=== PATIENT | female | born 1955 | race Caucasian/White ===

== ENCOUNTER 2020-10-02 16:50 | Inpatient (IN) | payer MEDICARE ==
[2020-10-02 17:21] LABS: #Lymphocytes 1.2 thou/uL (1.20-3.40); #Monocytes 0.4 thou/uL (0.11-0.59); #Neutrophils 4.4 thou/uL (1.40-6.50); %Basophils 0.4 % (0.0-1.0); %Eosinophils 0.7 % (0.0-10.0); %Lymphocytes 19.4 % (21.0-51.0); %Monocytes 7.2 % (0.0-10.0); %Neutrophils 72.3 % (42.0-75.0); Hemoglobin 12.5 g/dL (12.0-16.0); Mean Corpuscular Hemoglobin 31.8 pg (27.0-31.0); Mean Corpuscular Volume 93.6 fL (78.0-98.0); Mean Platelet Volume 5.9 fL (7.4-10.4); Platelet Count 151 thou/uL (130-400); RBC Distribution Width 12.4 % (11.5-14.5); Red Blood Cell (RBC) Count 3.92 mill/uL (4.20-5.40)
[2020-10-02] MEDS ORDERED: Fentanyl 100 MCG/2 ML VIAL ONE (17:27)
[2020-10-02 17:45] LABS: Anion Gap 11 mmol/L (10-20); BUN (Urea Nitrogen) 14 mg/dL (9.8-20.1); Calc. Creatinine Clearance 0 mL/min (70-130); Calcium 8.4 mg/dL (7.8-10.44); Carbon Dioxide 26 mmol/L (23-31); Chloride 106 mmol/L (98-107); Glucose 96 mg/dL (80-115); Potassium 3.3 mmol/L (3.5-5.1); Sodium 140 mmol/L (136-145)
[2020-10-02 17:46] LABS: ALT (SGPT) 14 U/L (8-55); AST (SGOT) 18 U/L (5-34); Albumin 3.9 g/dL (3.4-4.8); Alkaline Phosphatase 80 U/L (40-110); Bilirubin, Total 0.4 mg/dL (0.2-1.2); Globulin 2.5 g/dL (2.4-3.5); Protein, Total 6.4 g/dL (5.8-8.1)
[2020-10-02] MEDS ORDERED: Ondansetron PF 4 MG/2 ML Vial IVP PRN (18:17)
[2020-10-02] MEDS ORDERED: Dextrose 50% Abboject 50 ML SYRINGE SLOW IVP PRN (18:17)
[2020-10-02] MEDS ORDERED: Dextrose 5% in Water 1,000 ML IV PRN (18:17)
[2020-10-02] MEDS ORDERED: traMADol HCl 50 MG TAB PO PRN (18:44)
[2020-10-02] MEDS ORDERED: Potassium Chloride 20 MEQ TAB PO SCH (18:45)
[2020-10-02 19:07] LABS: INR-International Normal Ratio 1.1; PTT 30.1 sec (22.9-36.1); Prothrombin Time 14.7 sec (12.0-14.7)
[2020-10-02] MEDS: Ibuprofen 200 MG TAB PO SCH (22:01)
[2020-10-02] MEDS: Famotidine 20 MG TAB PO SCH (22:02)
[2020-10-03] MEDS: Acetaminophen 325 MG TAB PO SCH ×5 (00:34→23:39)
[2020-10-03] MEDS: traMADol HCl 50 MG TAB PO SCH ×5 (00:34→23:38)
[2020-10-03 04:45] LABS: SARS-CoV-2 PCR by NAA Not Detected (NotDetected)
[2020-10-03] MEDS: Ibuprofen 200 MG TAB PO SCH ×3 (05:08→20:56)
[2020-10-03 05:45] LABS: #Eosinphils 0.1 thou/uL (0.0-0.7); #Lymphocytes 1.4 thou/uL (1.20-3.40); #Monocytes 0.6 thou/uL (0.11-0.59); #Neutrophils 4.7 thou/uL (1.40-6.50); %Basophils 0.4 % (0.0-1.0); %Eosinophils 0.8 % (0.0-10.0); %Lymphocytes 20.3 % (21.0-51.0); %Monocytes 8.9 % (0.0-10.0); %Neutrophils 69.6 % (42.0-75.0); Hemoglobin 11.7 g/dL (12.0-16.0); Mean Corpuscular HGB CONC 33.2 g/dL (32.0-36.0); Mean Corpuscular Hemoglobin 31.1 pg (27.0-31.0); Mean Corpuscular Volume 93.7 fL (78.0-98.0); Mean Platelet Volume 6.2 fL (7.4-10.4); Platelet Count 157 thou/uL (130-400); RBC Distribution Width 12.5 % (11.5-14.5); Red Blood Cell (RBC) Count 3.76 mill/uL (4.20-5.40); White Blood Cell (WBC) Count 6.7 thou/uL (4.8-10.8)
[2020-10-03 06:05] LABS: Anion Gap 9 mmol/L (10-20); BUN (Urea Nitrogen) 11 mg/dL (9.8-20.1); Calc. Creatinine Clearance 113 mL/min (70-130); Calcium 8.3 mg/dL (7.8-10.44); Carbon Dioxide 27 mmol/L (23-31); Chloride 106 mmol/L (98-107); Glucose 96 mg/dL (80-115); Magnesium 1.9 mg/dL (1.6-2.6); Phosphorus 4.1 mg/dL (2.3-4.7); Potassium 4.2 mmol/L (3.5-5.1); Sodium 138 mmol/L (136-145)
[2020-10-03] MEDS: Famotidine 20 MG TAB PO SCH ×2 (08:25→20:56)
[2020-10-03] MEDS ORDERED: CEFAZOLIN 2 GM in Premix Bag 1 BAG IVPB SCH (14:45)
[2020-10-03] MEDS: Sodium Chloride 0.9% 1,000 ML IV SCH (23:38)
[2020-10-04] MEDS: Acetaminophen 325 MG TAB PO SCH ×3 (05:42→19:40)
[2020-10-04] MEDS: Ibuprofen 200 MG TAB PO SCH ×3 (05:42→21:49)
[2020-10-04] MEDS: traMADol HCl 50 MG TAB PO SCH ×3 (05:43→19:40)
[2020-10-04] MEDS: Sodium Chloride 0.9% 1,000 ML IV SCH (07:54)
[2020-10-04] MEDS: Famotidine 20 MG TAB PO SCH ×2 (07:57→21:49)
[2020-10-04] MEDS ORDERED: Ondansetron PF 4 MG/2 ML Vial ONE ×2 (11:42→12:10)
[2020-10-04] MEDS ORDERED: Fentanyl 100 MCG/2 ML VIAL ONE ×2 (11:42→15:06)
[2020-10-04] MEDS ORDERED: Neomycin-Polymyxin 1 ML AMP ONE (12:10)
[2020-10-04] MEDS ORDERED: Metoclopramide HCl 10 MG/2 ML VIAL ONE ×2 (12:10→12:40)
[2020-10-04] MEDS ORDERED: Famotidine/PF 20 mg/2ml Vial ONE (12:40)
[2020-10-04 14:36] LABS: CKMB 1.4 ng/mL (0-6.6)
[2020-10-04] MEDS ORDERED: Morphine 2 MG/ML VIAL ONE (15:35)
[2020-10-04] MEDS ORDERED: Aspirin Chewable 81 MG TAB PO SCH (17:30)
[2020-10-04] MEDS ORDERED: traMADol HCl 50 MG TAB PO SCH (18:45)
[2020-10-04] MEDS ORDERED: Acetaminophen 325 MG TAB PO SCH (18:45)
[2020-10-04] MEDS: Enoxaparin Sodium 40 MG/0.4 ML SYRINGE SC SCH ×2 (18:57→19:24)
[2020-10-04] MEDS ORDERED: Ondansetron PF 4 MG/2 ML Vial IVP PRN (19:06)
[2020-10-04 20:39] LABS: Troponin I 1.478 ng/mL (< 0.028)
[2020-10-04] MEDS ORDERED: Amlodipine 10 MG TAB PO SCH (21:00)
[2020-10-04] MEDS: Ezetimibe 10 MG TAB PO SCH (21:14)
[2020-10-04] MEDS: Rosuvastatin 20 MG TAB PO SCH (21:14)
[2020-10-04] MEDS: ALPRAZolam 0.5 MG TAB PO SCH (21:15)
[2020-10-04 22:18] LABS: Troponin I 2.416 ng/mL (< 0.028)
[2020-10-05] MEDS: Acetaminophen 325 MG TAB PO SCH ×5 (00:32→23:21)
[2020-10-05] MEDS: traMADol HCl 50 MG TAB PO SCH ×5 (00:33→23:20)
[2020-10-05] MEDS: Ibuprofen 200 MG TAB PO SCH ×2 (05:26→15:16)
[2020-10-05 08:43] LABS: #Eosinphils 0.3 thou/uL (0.0-0.7); #Lymphocytes 0.8 thou/uL (1.20-3.40); #Monocytes 0.7 thou/uL (0.11-0.59); #Neutrophils 5.4 thou/uL (1.40-6.50); %Basophils 0.3 % (0.0-1.0); %Lymphocytes 10.6 % (21.0-51.0); %Monocytes 9.5 % (0.0-10.0); %Neutrophils 75.7 % (42.0-75.0); Hemoglobin 12.3 g/dL (12.0-16.0); Mean Corpuscular HGB CONC 32.5 g/dL (32.0-36.0); Mean Corpuscular Hemoglobin 30.8 pg (27.0-31.0); Mean Corpuscular Volume 94.8 fL (78.0-98.0); Mean Platelet Volume 6.7 fL (7.4-10.4); Platelet Count 136 thou/uL (130-400); RBC Distribution Width 12.3 % (11.5-14.5); Red Blood Cell (RBC) Count 3.99 mill/uL (4.20-5.40); White Blood Cell (WBC) Count 7.1 thou/uL (4.8-10.8)
[2020-10-05] MEDS ORDERED: Communication Order-Pharmacy FS SCH (08:45)
[2020-10-05] MEDS ORDERED: Aspirin Chewable 81 MG TAB PO SCH (09:00)
[2020-10-05] MEDS ORDERED: Polyethylene Glycol 3350 17 GM Packet PO SCH (09:00)
[2020-10-05] MEDS ORDERED: Amlodipine 10 MG TAB PO SCH (09:00)
[2020-10-05 09:06] LABS: Anion Gap 10 mmol/L (10-20); BUN (Urea Nitrogen) 10 mg/dL (9.8-20.1); Calc. Creatinine Clearance 128 mL/min (70-130); Calcium 8.2 mg/dL (7.8-10.44); Carbon Dioxide 30 mmol/L (23-31); Chloride 103 mmol/L (98-107); Glucose 90 mg/dL (80-115); Magnesium 1.7 mg/dL (1.6-2.6); Phosphorus 3.9 mg/dL (2.3-4.7); Potassium 3.9 mmol/L (3.5-5.1); Sodium 139 mmol/L (136-145)
[2020-10-05] MEDS: Senokot S 8.6-50 MG TAB PO SCH ×2 (09:13→20:25)
[2020-10-05] MEDS ORDERED: Lidocaine 1% (PF) 30 ML VIAL ONE (09:48)
[2020-10-05] MEDS ORDERED: Midazolam HCl 2 mg/2 ml Vial ONE (10:43)
[2020-10-05] MEDS ORDERED: Sodium Chloride 0.9% 200 ML IV PRN (11:17)
[2020-10-05] MEDS ORDERED: Acetaminophen/Codeine 30-300mg Tablet PO PRN ×2 (11:17)
[2020-10-05] MEDS ORDERED: Nitroglycerin 0.4 MG TAB (25 Tab Bottle) SL PRN (11:17)
[2020-10-05] MEDS ORDERED: Communication Order-Pharmacy FS ONE (12:20)
[2020-10-05] MEDS ORDERED: Magnesium Sulfate 2 GM in Sodium Chloride 0.9% 100 ML IVPB SCH (13:30)
[2020-10-05] MEDS ORDERED: Magnesium 2 GM/50 ML 2 GM in Premix Bag 1 BAG IVPB SCH (13:45)
[2020-10-05] MEDS ORDERED: Iopamidol 370 76% 100 ML VIAL ONE (13:57)
[2020-10-05] MEDS ORDERED: Ibuprofen 800 MG TAB PO SCH (15:00)
[2020-10-05] MEDS: Ezetimibe 10 MG TAB PO SCH (20:24)
[2020-10-05] MEDS: ALPRAZolam 0.5 MG TAB PO SCH (20:24)
[2020-10-05] MEDS: Rosuvastatin 20 MG TAB PO SCH (20:24)
[2020-10-05] MEDS ORDERED: Ibuprofen 200 MG TAB PO SCH (22:00)
[2020-10-05] MEDS: Ibuprofen 800 MG TAB PO SCH (23:20)
[2020-10-05] MEDS ORDERED: Nitroglycerin 2% Ointment 1 INCH/1 GM Packet ONE (23:34)
[2020-10-06] MEDS ORDERED: CEFAZOLIN 2 GM in Premix Bag 1 BAG IVPB SCH (04:00)
[2020-10-06] MEDS: Acetaminophen 325 MG TAB PO SCH (05:00)
[2020-10-06] MEDS: traMADol HCl 50 MG TAB PO SCH (05:00)
[2020-10-06] MEDS: Ibuprofen 800 MG TAB PO SCH (05:01)
[2020-10-06] MEDS ORDERED: Albumin 5% 500 ML ONE (09:02)
[2020-10-06] MEDS ORDERED: Fentanyl 100 MCG/2 ML VIAL ONE (11:48)
[2020-10-06] MEDS ORDERED: Midazolam HCl 5 mg/5 ml Vial ONE (11:48)
[2020-10-06] MEDS ORDERED: Midazolam HCl 2 mg/2 ml Vial ONE (11:48)
[2020-10-06] MEDS ORDERED: Dexmedetomidine 200 MCG/2 ML VIAL ONE (11:48)
[2020-10-06] MEDS ORDERED: Vecuronium 10 MG VIAL ONE ×3 (11:48→12:09)
[2020-10-06] MEDS ORDERED: Heparin 10,000 UNITS/1 ML VIAL 30,000 UNITS in Sodium Chloride 0.9% 1,000 ML FS SCH (12:00)
[2020-10-06] MEDS ORDERED: Thrombin 5000 UNITS/5 ML VIAL ONE (12:09)
[2020-10-06] MEDS ORDERED: Magnesium Sulfate 1 GM/2 ML VIAL ONE (12:09)
[2020-10-06] MEDS ORDERED: Heparin 5,000 UNITS/ML VIAL ONE (12:09)
[2020-10-06] MEDS ORDERED: Dexamethasone 20 MG/5 ML VIAL ONE (12:09)
[2020-10-06] MEDS ORDERED: Nitroglycerin 50 MG/250 ML BOT ONE (12:09)
[2020-10-06] MEDS ORDERED: Ketorolac Tromethamine 30 MG/ML VIAL ONE (12:09)
[2020-10-06] MEDS ORDERED: Mannitol 12.5 GM/50 ML ONE (12:09)
[2020-10-06] MEDS ORDERED: Cardioplegic Soln 1,000 ML BAG ONE (12:09)
[2020-10-06] MEDS ORDERED: ePHEDrine 50 MG/ML VIAL ONE (12:09)
[2020-10-06] MEDS ORDERED: Calcium Chloride 1 GM/10 ML Abboject SYRINGE ONE (12:09)
[2020-10-06] MEDS ORDERED: Papaverine 60 MG/2 ML VIAL ONE (12:09)
[2020-10-06] MEDS ORDERED: Glycopyrrolate 0.2 MG/ML 5 ML SYRINGE ONE (12:09)
[2020-10-06] MEDS ORDERED: Lidocaine 1% PF 5 ML VIAL ONE ×2 (12:09)
[2020-10-06] MEDS ORDERED: Ondansetron PF 4 MG/2 ML Vial ONE (12:09)
[2020-10-06] MEDS ORDERED: Aminocaproic Acid 5 GM/20 ML VIAL ONE (12:09)
[2020-10-06] MEDS ORDERED: Lidocaine 2% PF 100 mg/5 ml Syringe ONE (12:09)
[2020-10-06] MEDS ORDERED: Potassium Chloride 60 MEQ/30 ML VIAL ONE (12:09)
[2020-10-06] MEDS ORDERED: Protamine Sulfate 250 MG/25 ML VIAL ONE (12:09)
[2020-10-06] MEDS ORDERED: PHENYLEPHRINE-NS 100 MCG/ML 10 ML SYRINGE ONE (12:09)
[2020-10-06] MEDS ORDERED: Heparin 30,000 units/30 ml VIAL ONE (12:09)
[2020-10-06] MEDS ORDERED: Sodium Bicarb 50 MEQ/50 ML Abboject 8.4% SYRINGE ONE (12:09)
[2020-10-06] MEDS ORDERED: Bisacodyl 5 MG TAB PO PRN (15:48)
[2020-10-06] MEDS ORDERED: Mag-Al 1200 mg/1200 mg/30 ML UDCUP PO PRN (15:48)
[2020-10-06] MEDS ORDERED: Bisacodyl 10 MG SUPP PR PRN (15:48)
[2020-10-06] MEDS ORDERED: Promethazine HCl 25 MG/ML VIAL IM PRN (15:48)
[2020-10-06] MEDS ORDERED: hydrALAZINE 20 MG/ML VIAL SLOW IVP PRN (15:48)
[2020-10-06] MEDS ORDERED: Post-Op Insulin Drip Protocol IVPB ONE (15:48)
[2020-10-06] MEDS ORDERED: Acetaminophen 325 MG TAB PO PRN (15:48)
[2020-10-06] MEDS ORDERED: Guaifenesin DM 100-10/5 ML UDCUP PO PRN (15:48)
[2020-10-06] MEDS ORDERED: HYDROcodone/Acetaminophen 5/325 mg Tablet PO PRN ×2 (15:48)
[2020-10-06] MEDS ORDERED: Fentanyl 100 MCG/2 ML VIAL SLOW IVP PRN (15:48)
[2020-10-06] MEDS ORDERED: Ondansetron PF 4 MG/2 ML Vial IVP PRN (15:48)
[2020-10-06] MEDS ORDERED: niCARdipine 25 MG in Sodium Chloride 0.9% 250 ML 240 ML IVPB PRN (15:48)
[2020-10-06] MEDS ORDERED: Norepinephrine 8 MG/0.9% NS 250 ML IVPB PRN (15:48)
[2020-10-06] MEDS ORDERED: Hetastarch 6% 500 ML 500 ML IVPB PRN (15:48)
[2020-10-06] MEDS ORDERED: Morphine 2 MG/ML VIAL SLOW IVP PRN (15:48)
[2020-10-06] MEDS ORDERED: Nitroglycerin 50 MG/250 ML BOT 250 ML IVPB PRN (15:48)
[2020-10-06] MEDS ORDERED: DOPamine 400 MG/D5W 250 ML 250 ML IVPB PRN (15:48)
[2020-10-06] MEDS ORDERED: Magnesium 2 GM/50 ML 2 GM in Premix Bag 1 BAG IVPB SCH (16:00)
[2020-10-06] MEDS ORDERED: Dextrose 50% Abboject 50 ML SYRINGE SLOW IVP PRN (16:00)
[2020-10-06] MEDS ORDERED: HUMULIN R 100 UNITS in Sodium Chloride 0.9% 100 ML IVPB SCH (16:00)
[2020-10-06] MEDS ORDERED: Insulin Regular 300 UNITS/3 ML VIAL SC PRN (16:00)
[2020-10-06] MEDS ORDERED: Dextrose 5% in Water 1,000 ML IV PRN (16:00)
[2020-10-06 16:10] LABS: #Eosinphils 0.1 thou/uL (0.0-0.7); #Lymphocytes 0.4 thou/uL (1.20-3.40); #Monocytes 0.2 thou/uL (0.11-0.59); #Neutrophils 4.6 thou/uL (1.40-6.50); %Basophils 0.1 % (0.0-1.0); %Eosinophils 1.5 % (0.0-10.0); %Monocytes 4.2 % (0.0-10.0); %Neutrophils 86.3 % (42.0-75.0); Hemoglobin 11.3 g/dL (12.0-16.0); Mean Corpuscular HGB CONC 33.4 g/dL (32.0-36.0); Mean Corpuscular Hemoglobin 31.6 pg (27.0-31.0); Mean Corpuscular Volume 94.6 fL (78.0-98.0); Mean Platelet Volume 6.2 fL (7.4-10.4); Platelet Count 98 thou/uL (130-400); RBC Distribution Width 12.1 % (11.5-14.5); Red Blood Cell (RBC) Count 3.58 mill/uL (4.20-5.40); White Blood Cell (WBC) Count 5.3 thou/uL (4.8-10.8)
[2020-10-06 16:11] LABS: Actual Bicarbonate (HCO3a) 26.6 mEq/L (22-28); Base Excess (BEa) 0.2 mEq/L (-2.0 to +3.0); CO2 Tension 50.5 mmHg (35.0-45.0); Calcium, Ionized (arterial) 1.14 mmol/L (1.12-1.30); Carboxyhemoglobin (COHb) 0.6 gm% (0.0-3.0); Hemoglobin (Hb) 11.8 g/dL (12.0-16.0); O2 Tension (PaO2), arterial 73.5 mmHg (> 80.0); pH, Arterial 7.34 (7.35-7.45)
[2020-10-06 16:12] LABS: ALV-art Gradient 148.575 mmHg (0-20); Puncture Site Arterial Line
[2020-10-06 16:13] LABS: INR-International Normal Ratio 1.3; Prothrombin Time 16.5 sec (12.0-14.7)
[2020-10-06 16:14] LABS: PTT 40.4 sec (22.9-36.1)
[2020-10-06 16:22] LABS: Glucose 146 mg/dL (80-115)
[2020-10-06] MEDS: Lactated Ringer's 1,000 ML IV SCH (16:22)
[2020-10-06 16:24] LABS: Platelet Morphology Comment Appears Decreased; RBC Morphology Normal
[2020-10-06 16:27] LABS: Anion Gap 12 mmol/L (10-20); BUN (Urea Nitrogen) 8 mg/dL (9.8-20.1); Calc. Creatinine Clearance 150 mL/min (70-130); Calcium 7.8 mg/dL (7.8-10.44); Carbon Dioxide 26 mmol/L (23-31); Chloride 109 mmol/L (98-107); Glucose 143 mg/dL (80-115); Potassium 3.8 mmol/L (3.5-5.1); Sodium 143 mmol/L (136-145)
[2020-10-06] MEDS: Potassium Chloride 20 MEQ/100 ML PREMIX BAG IVPB PRN ×2 (16:37→22:13)
[2020-10-06] MEDS: Fentanyl 100 MCG/2 ML VIAL SLOW IVP PRN ×2 (17:30→19:31)
[2020-10-06] MEDS: CEFAZOLIN 2 GM in Premix Bag 1 BAG IVPB SCH (19:15)
[2020-10-06] MEDS: Famotidine/PF 20 mg/2ml Vial SLOW IVP SCH (19:35)
[2020-10-06 20:56] LABS: Hemoglobin 10.4 g/dL (12.0-16.0)
[2020-10-06 21:21] LABS: Potassium 3.9 mmol/L (3.5-5.1)
[2020-10-06] MEDS: Ketorolac Tromethamine 30 MG/ML VIAL IVP SCH (21:52)
[2020-10-07] MEDS: CEFAZOLIN 2 GM in Premix Bag 1 BAG IVPB SCH (03:30)
[2020-10-07] MEDS: Ketorolac Tromethamine 30 MG/ML VIAL IVP SCH ×4 (03:31→21:12)
[2020-10-07] MEDS: Fentanyl 100 MCG/2 ML VIAL SLOW IVP PRN ×2 (03:31→06:41)
[2020-10-07 04:43] LABS: #Lymphocytes 0.3 thou/uL (1.20-3.40); #Monocytes 0.5 thou/uL (0.11-0.59); %Eosinophils 0.1 % (0.0-10.0); %Lymphocytes 5.1 % (21.0-51.0); %Monocytes 7.8 % (0.0-10.0); Hemoglobin 10.2 g/dL (12.0-16.0); Mean Corpuscular HGB CONC 35.1 g/dL (32.0-36.0); Mean Corpuscular Hemoglobin 33.1 pg (27.0-31.0); Mean Corpuscular Volume 94.3 fL (78.0-98.0); Mean Platelet Volume 6.9 fL (7.4-10.4); Platelet Count 106 thou/uL (130-400); RBC Distribution Width 12.2 % (11.5-14.5); Red Blood Cell (RBC) Count 3.08 mill/uL (4.20-5.40); White Blood Cell (WBC) Count 5.7 thou/uL (4.8-10.8)
[2020-10-07 04:53] LABS: Anion Gap 16 mmol/L (10-20); BUN (Urea Nitrogen) 9 mg/dL (9.8-20.1); Calc. Creatinine Clearance 136 mL/min (70-130); Calcium 7.8 mg/dL (7.8-10.44); Carbon Dioxide 22 mmol/L (23-31); Chloride 108 mmol/L (98-107); Glucose 114 mg/dL (80-115); Sodium 142 mmol/L (136-145)
[2020-10-07 05:32] VITALS: BMI 27.9
[2020-10-07] MEDS: Potassium Chloride 20 MEQ/100 ML PREMIX BAG IVPB PRN (05:36)
[2020-10-07] MEDS: Lactated Ringer's 1,000 ML IV SCH (08:17)
[2020-10-07] MEDS: Famotidine/PF 20 mg/2ml Vial SLOW IVP SCH (08:17)
[2020-10-07] MEDS ORDERED: traMADol HCl 50 MG TAB PO PRN (08:38)
[2020-10-07] MEDS ORDERED: Nitroglycerin 0.4 MG TAB (25 Tab Bottle) SL PRN (08:51)
[2020-10-07] MEDS ORDERED: Mag-Al 1200 mg/1200 mg/30 ML UDCUP PO PRN (08:51)
[2020-10-07] MEDS ORDERED: Bisacodyl 10 MG SUPP PR PRN (08:51)
[2020-10-07] MEDS ORDERED: Guaifenesin DM 100-10/5 ML UDCUP PO PRN (08:51)
[2020-10-07] MEDS ORDERED: Mineral Oil ENEMA PR PRN (08:51)
[2020-10-07] MEDS ORDERED: Zolpidem Tartrate 5 MG TAB PO PRN (08:51)
[2020-10-07] MEDS ORDERED: Bisacodyl 5 MG TAB PO PRN (08:51)
[2020-10-07] MEDS ORDERED: diphenhydrAMINE 25 MG CAP PO PRN (08:51)
[2020-10-07] MEDS: traMADol HCl 50 MG TAB PO PRN (08:54)
[2020-10-07 08:57] LABS: Phosphorus 3.7 mg/dL (2.3-4.7)
[2020-10-07] MEDS ORDERED: Aspirin 325 MG TAB PO SCH (09:00)
[2020-10-07] MEDS ORDERED: Aspirin 325 mg Enteric Coated Tablet PO SCH (09:00)
[2020-10-07] MEDS ORDERED: traMADol HCl 50 MG TAB PO SCH (09:45)
[2020-10-07] MEDS ORDERED: Acetaminophen 325 MG TAB PO SCH (09:45)
[2020-10-07] MEDS ORDERED: Magnesium 2 GM/50 ML 2 GM in Premix Bag 1 BAG IVPB SCH (10:00)
[2020-10-07] MEDS: Enoxaparin Sodium 40 MG/0.4 ML SYRINGE SC SCH (10:12)
[2020-10-07] MEDS: Cyclobenzaprine 10 MG TAB PO PRN (13:30)
[2020-10-07] MEDS: traMADol HCl 50 MG TAB PO SCH ×2 (16:02→21:11)
[2020-10-07] MEDS: Acetaminophen 325 MG TAB PO SCH ×2 (16:03→21:10)
[2020-10-07] MEDS ORDERED: Rosuvastatin 20 MG TAB PO SCH (21:00)
[2020-10-07] MEDS: Rosuvastatin 20 MG TAB PO SCH (21:10)
[2020-10-07] MEDS: Famotidine 20 MG TAB PO SCH (21:10)
[2020-10-08] MEDS ORDERED: Amiodarone 450 MG, Admixture Fee 1 EACH in Dextrose 5% in Water 250 ML IVPB SCH (02:15)
[2020-10-08] MEDS ORDERED: Amiodarone 150 MG in Dextrose 5% in Water 100 ML IVPB SCH (03:15)
[2020-10-08 03:30] LABS: #Eosinphils 0.1 thou/uL (0.0-0.7); #Lymphocytes 1.3 thou/uL (1.20-3.40); #Monocytes 0.6 thou/uL (0.11-0.59); #Neutrophils 3.2 thou/uL (1.40-6.50); %Basophils 0.4 % (0.0-1.0); %Eosinophils 2.8 % (0.0-10.0); %Lymphocytes 24.9 % (21.0-51.0); %Monocytes 10.6 % (0.0-10.0); %Neutrophils 61.3 % (42.0-75.0); Mean Corpuscular HGB CONC 34.1 g/dL (32.0-36.0); Mean Corpuscular Hemoglobin 32.2 pg (27.0-31.0); Mean Corpuscular Volume 94.4 fL (78.0-98.0); Mean Platelet Volume 6.9 fL (7.4-10.4); Platelet Count 103 thou/uL (130-400); RBC Distribution Width 12.3 % (11.5-14.5); White Blood Cell (WBC) Count 5.1 thou/uL (4.8-10.8)
[2020-10-08 03:48] LABS: Anion Gap 12 mmol/L (10-20); BUN (Urea Nitrogen) 16 mg/dL (9.8-20.1); Calc. Creatinine Clearance 121 mL/min (70-130); Carbon Dioxide 28 mmol/L (23-31); Chloride 103 mmol/L (98-107); Glucose 117 mg/dL (80-115); Magnesium 2.1 mg/dL (1.6-2.6); Phosphorus 3.7 mg/dL (2.3-4.7); Potassium 3.7 mmol/L (3.5-5.1); Sodium 139 mmol/L (136-145)
[2020-10-08] MEDS ORDERED: Digoxin 0.5 MG/2 ML AMP ONE (03:54)
[2020-10-08] MEDS ORDERED: Adenosine 6 MG/2 ML VIAL ONE (04:06)
[2020-10-08 05:00] LABS: CKMB 4.4 ng/mL (0-6.6)
[2020-10-08] MEDS: Ketorolac Tromethamine 30 MG/ML VIAL IVP SCH ×4 (05:16→21:34)
[2020-10-08] MEDS: Acetaminophen 325 MG TAB PO SCH ×4 (05:17→21:20)
[2020-10-08] MEDS: traMADol HCl 50 MG TAB PO SCH ×4 (05:17→21:20)
[2020-10-08] MEDS ORDERED: Sodium Chloride 0.9% 500 ML IV SCH (06:15)
[2020-10-08] MEDS: Famotidine 20 MG TAB PO SCH ×2 (09:21→21:21)
[2020-10-08] MEDS: Polyethylene Glycol 3350 17 GM Packet PO SCH (09:24)
[2020-10-08] MEDS ORDERED: Potassium Chloride 40 MEQ in Sodium Chloride 0.9% 250 ML 250 ML IVPB SCH (09:30)
[2020-10-08 11:01] LABS: Critical Call Chem Troponin I RESULT DECREASING; Troponin I 6.491 ng/mL (< 0.028)
[2020-10-08] MEDS ORDERED: Fentanyl 100 MCG/2 ML VIAL ONE ×2 (12:47→13:08)
[2020-10-08] MEDS ORDERED: Lidocaine 1% (PF) 30 ML VIAL ONE (12:49)
[2020-10-08] MEDS ORDERED: Fentanyl 100 MCG/2 ML VIAL SLOW IVP PRN (13:35)
[2020-10-08] MEDS ORDERED: Dexamethasone 20 MG/5 ML VIAL ONE (13:44)
[2020-10-08] MEDS ORDERED: Ondansetron PF 4 MG/2 ML Vial ONE (13:44)
[2020-10-08] MEDS ORDERED: PHENYLEPHRINE-NS 100 MCG/ML 10 ML SYRINGE ONE (13:44)
[2020-10-08] MEDS ORDERED: Rocuronium Bromide 10 MG/ML (10ML VIAL) ONE (13:44)
[2020-10-08] MEDS ORDERED: Glycopyrrolate 0.2 MG/ML 5 ML SYRINGE ONE (13:44)
[2020-10-08] MEDS ORDERED: ePHEDrine 50 MG/ML VIAL ONE (13:44)
[2020-10-08] MEDS ORDERED: Lidocaine 1% PF 5 ML VIAL ONE (13:44)
[2020-10-08] MEDS ORDERED: Ketorolac Tromethamine 30 MG/ML VIAL ONE (13:44)
[2020-10-08] MEDS ORDERED: Ropivacaine 0.5% HCl/PF (150 MG/30 ML VIAL) ONE (13:44)
[2020-10-08] MEDS ORDERED: PROPOFOL 200 MG/20 ML VIAL ONE (13:44)
[2020-10-08] MEDS: Cyclobenzaprine 10 MG TAB PO PRN (21:21)
[2020-10-08] MEDS: Rosuvastatin 20 MG TAB PO SCH (21:21)
[2020-10-08] MEDS: CEFAZOLIN 2 GM in Premix Bag 1 BAG IVPB SCH (21:21)
[2020-10-09] MEDS: traMADol HCl 50 MG TAB PO SCH ×4 (05:16→22:38)
[2020-10-09] MEDS: CEFAZOLIN 2 GM in Premix Bag 1 BAG IVPB SCH (05:17)
[2020-10-09] MEDS: Acetaminophen 325 MG TAB PO SCH ×4 (05:17→22:38)
[2020-10-09] MEDS: Ketorolac Tromethamine 30 MG/ML VIAL IVP SCH ×4 (05:17→22:36)
[2020-10-09] MEDS: Polyethylene Glycol 3350 17 GM Packet PO SCH (08:47)
[2020-10-09] MEDS: Furosemide 40 MG TAB PO SCH (08:47)
[2020-10-09] MEDS: Famotidine 20 MG TAB PO SCH ×2 (08:47→22:37)
[2020-10-09] MEDS: Aspirin 81 mg Enteric Coated Tablet PO SCH (08:47)
[2020-10-09] MEDS: Enoxaparin Sodium 40 MG/0.4 ML SYRINGE SC SCH (10:06)
[2020-10-09] MEDS: Amiodarone 200 MG TAB PO SCH (22:37)
[2020-10-09] MEDS: Metoprolol Tartrate 25 MG TAB PO SCH (22:37)
[2020-10-09] MEDS: Rosuvastatin 20 MG TAB PO SCH (22:37)
[2020-10-10] MEDS: Acetaminophen 325 MG TAB PO SCH ×4 (05:19→23:56)
[2020-10-10] MEDS: Ketorolac Tromethamine 30 MG/ML VIAL IVP SCH ×2 (05:20→11:48)
[2020-10-10] MEDS: traMADol HCl 50 MG TAB PO SCH ×4 (05:21→23:57)
[2020-10-10] MEDS: Amiodarone 200 MG TAB PO SCH ×2 (08:22→20:54)
[2020-10-10] MEDS: Aspirin 81 mg Enteric Coated Tablet PO SCH (08:23)
[2020-10-10] MEDS: Enoxaparin Sodium 40 MG/0.4 ML SYRINGE SC SCH (08:23)
[2020-10-10] MEDS: Metoprolol Tartrate 25 MG TAB PO SCH ×2 (08:24→20:56)
[2020-10-10] MEDS: Famotidine 20 MG TAB PO SCH ×2 (08:24→20:52)
[2020-10-10] MEDS: Furosemide 40 MG TAB PO SCH (08:24)
[2020-10-10] MEDS: Polyethylene Glycol 3350 17 GM Packet PO SCH (16:18)
[2020-10-10] MEDS: traMADol HCl 50 MG TAB PO PRN (18:28)
[2020-10-10] MEDS: Rosuvastatin 20 MG TAB PO SCH (20:52)
[2020-10-11] MEDS: Acetaminophen 325 MG TAB PO SCH ×4 (06:48→20:45)
[2020-10-11] MEDS: traMADol HCl 50 MG TAB PO SCH ×4 (06:49→20:45)
[2020-10-11] MEDS: Furosemide 40 MG TAB PO SCH (08:57)
[2020-10-11] MEDS: Aspirin 81 mg Enteric Coated Tablet PO SCH (08:58)
[2020-10-11] MEDS: Famotidine 20 MG TAB PO SCH ×2 (08:58→20:44)
[2020-10-11] MEDS: Amiodarone 200 MG TAB PO SCH ×2 (08:58→20:46)
[2020-10-11] MEDS ORDERED: Scopolamine 1.5 mg/72 hour Patch TD SCH (10:00)
[2020-10-11 10:07] LABS: #Eosinphils 0.3 thou/uL (0.0-0.7); #Lymphocytes 1.2 thou/uL (1.20-3.40); #Monocytes 0.5 thou/uL (0.11-0.59); #Neutrophils 3.5 thou/uL (1.40-6.50); %Basophils 0.5 % (0.0-1.0); %Eosinophils 5.6 % (0.0-10.0); %Lymphocytes 22.1 % (21.0-51.0); %Monocytes 8.9 % (0.0-10.0); %Neutrophils 62.9 % (42.0-75.0); Hemoglobin 8.1 g/dL (12.0-16.0); Mean Corpuscular HGB CONC 33.7 g/dL (32.0-36.0); Mean Corpuscular Hemoglobin 31.7 pg (27.0-31.0); Mean Platelet Volume 6.2 fL (7.4-10.4); Platelet Count 198 thou/uL (130-400); RBC Distribution Width 12.2 % (11.5-14.5); Red Blood Cell (RBC) Count 2.54 mill/uL (4.20-5.40); White Blood Cell (WBC) Count 5.5 thou/uL (4.8-10.8)
[2020-10-11] MEDS: Enoxaparin Sodium 40 MG/0.4 ML SYRINGE SC SCH (10:31)
[2020-10-11] MEDS: Polyethylene Glycol 3350 17 GM Packet PO SCH (10:32)
[2020-10-11] MEDS: Rosuvastatin 20 MG TAB PO SCH (20:44)
[2020-10-11] MEDS ORDERED: Loratadine 10 MG TAB PO PRN (22:28)
[2020-10-12] MEDS: traMADol HCl 50 MG TAB PO SCH ×4 (03:34→21:59)
[2020-10-12] MEDS: Acetaminophen 325 MG TAB PO SCH ×4 (03:35→21:58)
[2020-10-12] MEDS ORDERED: Potassium Chloride 20 MEQ TAB PO SCH (06:15)
[2020-10-12 08:24] LABS: #Eosinphils 0.2 thou/uL (0.0-0.7); #Lymphocytes 1.2 thou/uL (1.20-3.40); #Monocytes 0.5 thou/uL (0.11-0.59); #Neutrophils 3.4 thou/uL (1.40-6.50); %Basophils 0.8 % (0.0-1.0); %Eosinophils 4.6 % (0.0-10.0); %Lymphocytes 22.6 % (21.0-51.0); %Monocytes 9.2 % (0.0-10.0); %Neutrophils 62.8 % (42.0-75.0); Hemoglobin 8.1 g/dL (12.0-16.0); Mean Corpuscular Hemoglobin 31.8 pg (27.0-31.0); Mean Corpuscular Volume 93.6 fL (78.0-98.0); Mean Platelet Volume 6.1 fL (7.4-10.4); Platelet Count 219 thou/uL (130-400); RBC Distribution Width 12.3 % (11.5-14.5); Red Blood Cell (RBC) Count 2.53 mill/uL (4.20-5.40); White Blood Cell (WBC) Count 5.3 thou/uL (4.8-10.8)
[2020-10-12 08:46] LABS: Anion Gap 10 mmol/L (10-20); BUN (Urea Nitrogen) 9 mg/dL (9.8-20.1); Calc. Creatinine Clearance 132 mL/min (70-130); Calcium 7.7 mg/dL (7.8-10.44); Carbon Dioxide 30 mmol/L (23-31); Chloride 102 mmol/L (98-107); Glucose 105 mg/dL (80-115); Potassium 3.5 mmol/L (3.5-5.1); Sodium 138 mmol/L (136-145)
[2020-10-12] MEDS: Famotidine 20 MG TAB PO SCH ×2 (09:31→21:58)
[2020-10-12] MEDS: Polyethylene Glycol 3350 17 GM Packet PO SCH (09:31)
[2020-10-12] MEDS: Enoxaparin Sodium 40 MG/0.4 ML SYRINGE SC SCH (09:31)
[2020-10-12] MEDS: Amiodarone 200 MG TAB PO SCH (09:54)
[2020-10-12] MEDS: Aspirin 81 mg Enteric Coated Tablet PO SCH (09:55)
[2020-10-12] MEDS: Furosemide 40 MG TAB PO SCH (09:55)
[2020-10-12] MEDS: Tetrahydrozoline 0.05% OPTH 15 ML BOT EA EYE SCH ×2 (09:55→21:00)
[2020-10-12] MEDS: Rosuvastatin 20 MG TAB PO SCH (21:58)
[2020-10-13] MEDS: Acetaminophen 325 MG TAB PO SCH ×3 (04:00→16:41)
[2020-10-13] MEDS: traMADol HCl 50 MG TAB PO SCH ×3 (04:00→16:40)
[2020-10-13] MEDS ORDERED: Magnesium Citrate 300 ML BOT PO SCH (08:30)
[2020-10-13] MEDS ORDERED: Amiodarone 200 MG TAB PO SCH (09:00)
[2020-10-13] MEDS: Polyethylene Glycol 3350 17 GM Packet PO SCH (09:17)
[2020-10-13] MEDS: Enoxaparin Sodium 40 MG/0.4 ML SYRINGE SC SCH (09:17)
[2020-10-13] MEDS: Famotidine 20 MG TAB PO SCH (09:18)
[2020-10-13] MEDS: Aspirin 81 mg Enteric Coated Tablet PO SCH (09:18)
[2020-10-13] MEDS: Tetrahydrozoline 0.05% OPTH 15 ML BOT EA EYE SCH (09:22)
[2020-10-13 16:02] VITALS: BP 103/53; TEMP 98.6
[2020-10-22 13:35] LABS: Actual Bicarbonate (HCO3a) 25.5 mEq/L (22-28); Analyzer IN Cardio OR; Base Excess (BEa) 2.5 mEq/L (-2.0 to +3.0); CO2 Tension 33.6 mmHg (35.0-45.0); Calcium, Ionized (arterial) 1.03 mmol/L (1.12-1.30); Carboxyhemoglobin (COHb) 0.5 gm% (0.0-3.0); Hemoglobin (Hb) 10.9 g/dL (12.0-16.0); O2 Tension (PaO2), arterial 270.1 mmHg (> 80.0); Potassium - ABG Lab 3.14 mmol/L (3.70-5.30)
[2020-10-22 13:35] LABS: Actual Bicarbonate (HCO3a) 25.9 mEq/L (22-28); Analyzer IN Cardio OR; Base Excess (BEa) 1.9 mEq/L (-2.0 to +3.0); CO2 Tension 38.4 mmHg (35.0-45.0); Calcium, Ionized (arterial) 1.05 mmol/L (1.12-1.30); Carboxyhemoglobin (COHb) 0.8 gm% (0.0-3.0); Hemoglobin (Hb) 11.5 g/dL (12.0-16.0); O2 Tension (PaO2), arterial 277.2 mmHg (> 80.0); Potassium - ABG Lab 3.33 mmol/L (3.70-5.30); pH, Arterial 7.45 (7.35-7.45)
[2020-10-22 13:35] LABS: Actual Bicarbonate (HCO3a) 26.2 mEq/L (22-28); Analyzer IN Cardio OR; Base Excess (BEa) 3.2 mEq/L (-2.0 to +3.0); CO2 Tension 33.7 mmHg (35.0-45.0); Calcium, Ionized (arterial) 0.99 mmol/L (1.12-1.30); Carboxyhemoglobin (COHb) 0.5 gm% (0.0-3.0); Hemoglobin (Hb) 8.7 g/dL (12.0-16.0); O2 Tension (PaO2), arterial 455.4 mmHg (> 80.0); Potassium - ABG Lab 4.98 mmol/L (3.70-5.30); pH, Arterial 7.51 (7.35-7.45)
[2020-10-22 13:36] LABS: Actual Bicarbonate (HCO3a) 26.6 mEq/L (22-28); Analyzer IN Cardio OR; CO2 Tension 41.5 mmHg (35.0-45.0); Calcium, Ionized (arterial) 1.11 mmol/L (1.12-1.30); Carboxyhemoglobin (COHb) 0.5 gm% (0.0-3.0); Hemoglobin (Hb) 10.6 g/dL (12.0-16.0); pH, Arterial 7.42 (7.35-7.45)
[2020-10-22 13:36] LABS: Actual Bicarbonate (HCO3v) 26 mEq/L (22-28); Analyzer IN Cardio OR; Calcium, Ionized (venous) 1.02 mmol/L (1.16-1.32); Chloride (VBG) 109 mmol/L (98-106); Hemoglobin (Hb) 8.2 g/dL (11.7-16.1); Potassium (VBG) 3.75 mmol/L (3.70-5.30); Sodium 136.5 mmol/L (133-146); pH (venous) 7.43 (7.32-7.43)
[2020-10-22 13:37] LABS: Puncture Site Arterial Line
[2020-10-22 13:40] LABS: Puncture Site Arterial Line
[2020-10-22 13:40] LABS: Puncture Site Arterial Line
[2020-10-22 13:41] LABS: Puncture Site Arterial Line
== END 2020-10-13 16:53 | DRG 521 ==
LOC: ERS 16:50 → SURG A 18:21 → UNDODISIN 10-04 14:25 → SURG A 10-04 15:25 → 2NO 10-04 18:24 → CCU 10-06 12:12 → 2NO 10-07 19:32
PROVIDERS: ADMIT Surgery; ATTEND Surgery
PROC: 4A023N7 Measurement of Cardiac Sampling and Pressure, Left Heart, Percutaneous Approach (ICD-10-PCS; 2020-10-02)
PROC: B2111ZZ Fluoroscopy of Multiple Coronary Arteries using Low Osmolar Contrast (ICD-10-PCS; 2020-10-02)
PROC: 02100Z9 Bypass Coronary Artery, One Artery from Left Internal Mammary, Open Approach (ICD-10-PCS; 2020-10-06)
PROC: 021109W Bypass Coronary Artery, Two Arteries from Aorta with Autologous Venous Tissue, Open Approach (ICD-10-PCS; 2020-10-06)
PROC: 06BQ4ZZ Excision of Left Saphenous Vein, Percutaneous Endoscopic Approach (ICD-10-PCS; 2020-10-06)
PROC: 5A1221Z Performance of Cardiac Output, Continuous (ICD-10-PCS; 2020-10-06)
PROC: 0SRR0JZ Replacement of Right Hip Joint, Femoral Surface with Synthetic Substitute, Open Approach (ICD-10-PCS; principal; 2020-10-08)
DX: S72.001A Fracture of unspecified part of neck of right femur, initial encounter for closed fracture (principal); I21.4 Non-ST elevation (NSTEMI) myocardial infarction; D68.8 Other specified coagulation defects; I48.92 Unspecified atrial flutter; W01.0XXA Fall on same level from slipping, tripping and stumbling without subsequent striking against object, initial encounter; E78.5 Hyperlipidemia, unspecified; F41.9 Anxiety disorder, unspecified; I48.0 Paroxysmal atrial fibrillation; I25.119 Atherosclerotic heart disease of native coronary artery with unspecified angina pectoris; Z20.822 Contact with and (suspected) exposure to COVID-19; I10 Essential (primary) hypertension; I95.9 Hypotension, unspecified; Y92.009 Unspecified place in unspecified non-institutional (private) residence as the place of occurrence of the external cause; I25.2 Old myocardial infarction; Z79.01 Long term (current) use of anticoagulants; Z79.82 Long term (current) use of aspirin; Z87.891 Personal history of nicotine dependence
CPT/HCPCS: 36415; 36416; 71045; 72170; 80048; 80053; 82553; 82805; 83735; 83880; 84100; 84484; 85025; 85610; 85730; 86850; 86900; 86901; 87635; 93005; 93010; 93306; 93458; 93798; 94760; 96374; 99152; C1776; G0390; J0153; J0282; J0690; J1100; J1160; J1642; J1644; J1650; J1815; J1885; J2001; J2150; J2250; J2270; J2405; J2440; J2704; J2720; J2765; J2795; J3010; J3370; J3475; J3480; J3490; J7050; J7070; P9045; Q9967; S0017; S0028; U0003; U0005

== ENCOUNTER 2020-11-04 09:39 | Observation (INO) | payer MEDICARE ==
[2020-11-04 10:24] LABS: #Monocytes 0.6 thou/uL (0.11-0.59); #Neutrophils 5.4 thou/uL (1.40-6.50); %Basophils 0.5 % (0.0-1.0); %Eosinophils 0.5 % (0.0-10.0); %Lymphocytes 13.7 % (21.0-51.0); %Monocytes 8.6 % (0.0-10.0); %Neutrophils 76.6 % (42.0-75.0); Hemoglobin 10.6 g/dL (12.0-16.0); Mean Corpuscular HGB CONC 32.4 g/dL (32.0-36.0); Mean Corpuscular Hemoglobin 31.6 pg (27.0-31.0); Mean Corpuscular Volume 97.5 fL (78.0-98.0); Mean Platelet Volume 6.1 fL (7.4-10.4); Platelet Count 279 thou/uL (130-400); RBC Distribution Width 14.3 % (11.5-14.5); Red Blood Cell (RBC) Count 3.36 mill/uL (4.20-5.40)
[2020-11-04 10:32] LABS: ALT (SGPT) Less than 7 U/L (8-55); AST (SGOT) 12 U/L (5-34); Albumin 3.6 g/dL (3.4-4.8); Alkaline Phosphatase 145 U/L (40-110); Anion Gap 14 mmol/L (10-20); BUN (Urea Nitrogen) 7 mg/dL (9.8-20.1); Bilirubin, Total 0.5 mg/dL (0.2-1.2); Calc. Creatinine Clearance 0 mL/min (70-130); Calcium 8.9 mg/dL (7.8-10.44); Carbon Dioxide 27 mmol/L (23-31); Chloride 106 mmol/L (98-107); Globulin 2.7 g/dL (2.4-3.5); Glucose 116 mg/dL (80-115); Potassium 3.2 mmol/L (3.5-5.1); Protein, Total 6.3 g/dL (5.8-8.1); Sodium 144 mmol/L (136-145)
[2020-11-04 11:12] LABS: CKMB 0.8 ng/mL (0-6.6)
[2020-11-04] MEDS ORDERED: Potassium Chloride 20 MEQ TAB PO SCH (12:15)
[2020-11-04] MEDS ORDERED: Ondansetron PF 4 MG/2 ML Vial IVP PRN (12:19)
[2020-11-04] MEDS ORDERED: Acetaminophen 650 MG Suppository PR PRN (12:20)
[2020-11-04] MEDS ORDERED: Acetaminophen 325 MG TAB PO PRN (12:20)
[2020-11-04 12:30] LABS: Bacteria/HPF None Seen HPF (None Seen); Bilirubin Negative (Negative); Blood, Urine Negative (Negative); Clarity Turbid (Clear); Glucose, Urine (Dipstick) Normal (Negative); Ketone, Urine Negative (Negative); Leukocyte 75 Leu/uL (Negative); Nitrite Negative (Negative); Protein, Urine (Dipstick) Negative (Neg-Trace); RBC/HPF 0-3 HPF (0-3); Specific Gravity, Urine 1.014 (1.002-1.036)
[2020-11-04] MEDS ORDERED: Aspirin 325 MG TAB PO SCH (12:30)
[2020-11-04] MEDS ORDERED: Ondansetron PF 4 MG/2 ML Vial ONE ×2 (12:58→14:47)
[2020-11-04 13:15] LABS: Troponin I 0.034 ng/mL (< 0.028)
[2020-11-04] MEDS ORDERED: Aspirin 325 MG TAB ONE (15:13)
[2020-11-04] MEDS ORDERED: Potassium Chloride 20 MEQ TAB ONE ×2 (15:13→15:15)
[2020-11-04] MEDS ORDERED: Pantoprazole 40 MG VIAL ONE (15:13)
[2020-11-04] MEDS ORDERED: Metoclopramide HCl 10 MG/2 ML VIAL IVP PRN (17:53)
[2020-11-04] MEDS ORDERED: Metoclopramide HCl 10 MG/2 ML VIAL ONE (18:15)
[2020-11-04 19:55] VITALS: BMI 25.7
[2020-11-04] MEDS ORDERED: Ezetimibe 10 MG TAB PO SCH (21:00)
[2020-11-04] MEDS ORDERED: Rosuvastatin 20 MG TAB PO SCH (21:00)
[2020-11-04] MEDS: Apixaban 5 MG TAB PO SCH (21:48)
[2020-11-04 21:59] LABS: SARS-CoV-2 PCR by NAA Not Detected (NotDetected)
[2020-11-05 04:28] LABS: #Eosinphils 0.1 thou/uL (0.0-0.7); #Monocytes 0.4 thou/uL (0.11-0.59); #Neutrophils 2.9 thou/uL (1.40-6.50); %Basophils 0.6 % (0.0-1.0); %Eosinophils 2.5 % (0.0-10.0); %Lymphocytes 22.9 % (21.0-51.0); %Monocytes 9.6 % (0.0-10.0); %Neutrophils 64.5 % (42.0-75.0); Hemoglobin 9.4 g/dL (12.0-16.0); Mean Corpuscular Hemoglobin 31.2 pg (27.0-31.0); Mean Corpuscular Volume 97.4 fL (78.0-98.0); Mean Platelet Volume 6.2 fL (7.4-10.4); Platelet Count 253 thou/uL (130-400); RBC Distribution Width 14.2 % (11.5-14.5); Red Blood Cell (RBC) Count 2.99 mill/uL (4.20-5.40); White Blood Cell (WBC) Count 4.5 thou/uL (4.8-10.8)
[2020-11-05 04:47] LABS: Anion Gap 11 mmol/L (10-20); BUN (Urea Nitrogen) 9 mg/dL (9.8-20.1); Calc. Creatinine Clearance 110 mL/min (70-130); Calcium 8.5 mg/dL (7.8-10.44); Carbon Dioxide 26 mmol/L (23-31); Cardiac Risk 2.8 (Less than 4.5); Chloride 109 mmol/L (98-107); Cholesterol 94 mg/dl (< 200 Desired); Glucose 111 mg/dL (80-115); HDL Cholesterol 33 mg/dL (>60 Neg Risk); LDL Cholesterol, Calculated 50 mg/dL; Potassium 3.5 mmol/L (3.5-5.1); Sodium 142 mmol/L (136-145); Triglycerides 55 mg/dL (Less than 150)
[2020-11-05] MEDS: Apixaban 5 MG TAB PO SCH (08:30)
[2020-11-05] MEDS ORDERED: Amlodipine 10 MG TAB PO SCH (09:00)
[2020-11-05] MEDS ORDERED: Aspirin 81 mg Enteric Coated Tablet PO SCH (09:00)
[2020-11-05] MEDS ORDERED: Amiodarone 200 MG TAB PO SCH (09:00)
[2020-11-05 11:50] VITALS: BP 93/52; TEMP 97.8
[2020-11-05] MEDS ORDERED: Ondansetron ORAL SOLN. 4 MG/5 ML UDCUP PO PRN (13:16)
== END 2020-11-05 14:30 | disposition home or self-care (01) ==
LOC: ERS 09:39 → ERHOLD 12:44 → 2NO 18:56
PROVIDERS: ADMIT Internal Medicine Cardiovascular Disease; ATTEND Student in an Organized Health Care Education/Training Program
DX: I25.119 Atherosclerotic heart disease of native coronary artery with unspecified angina pectoris (principal); I25.5 Ischemic cardiomyopathy; R11.0 Nausea; E87.6 Hypokalemia; I10 Essential (primary) hypertension; I48.91 Unspecified atrial fibrillation; E78.5 Hyperlipidemia, unspecified; D64.9 Anemia, unspecified; Z79.01 Long term (current) use of anticoagulants; Z79.899 Other long term (current) drug therapy; Z88.5 Allergy status to narcotic agent; Z95.1 Presence of aortocoronary bypass graft; Z88.8 Allergy status to other drugs, medicaments and biological substances; Z20.822 Contact with and (suspected) exposure to COVID-19
CPT/HCPCS: 80048; 80061; 82553; 83735; 84484 ×2; 85025; 93005; 94760 ×2; 96374; 96376; 99284; U0003; U0005; 36415; 80053; 81003; 81015; 84443; 87635; 96375; C9113; G0378; J2405; J2765

== ENCOUNTER 2020-12-12 21:24 | Observation (INO) | payer MEDICARE ==
[2020-12-12 23:47] LABS: #Lymphocytes 1.1 thou/uL (1.20-3.40); #Monocytes 0.4 thou/uL (0.11-0.59); #Neutrophils 2.9 thou/uL (1.40-6.50); %Basophils 0.6 % (0.0-1.0); %Eosinophils 0.8 % (0.0-10.0); %Lymphocytes 23.9 % (21.0-51.0); %Monocytes 9.5 % (0.0-10.0); %Neutrophils 65.2 % (42.0-75.0); Hemoglobin 8.6 g/dL (12.0-16.0); Mean Corpuscular HGB CONC 33.6 g/dL (32.0-36.0); Mean Corpuscular Hemoglobin 30.5 pg (27.0-31.0); Mean Corpuscular Volume 90.7 fL (78.0-98.0); Mean Platelet Volume 6.6 fL (7.4-10.4); Platelet Count 193 thou/uL (130-400); RBC Distribution Width 12.9 % (11.5-14.5); Red Blood Cell (RBC) Count 2.83 mill/uL (4.20-5.40); White Blood Cell (WBC) Count 4.5 thou/uL (4.8-10.8)
[2020-12-13 00:12] LABS: ALT (SGPT) 7 U/L (8-55); AST (SGOT) 15 U/L (5-34); Albumin 3.1 g/dL (3.4-4.8); Alkaline Phosphatase 85 U/L (40-110); Anion Gap 8 mmol/L (10-20); BUN (Urea Nitrogen) 8 mg/dL (9.8-20.1); Bilirubin, Total 0.2 mg/dL (0.2-1.2); Calc. Creatinine Clearance 0 mL/min (70-130); Calcium 8.1 mg/dL (7.8-10.44); Carbon Dioxide 26 mmol/L (23-31); Chloride 111 mmol/L (98-107); Globulin 2.4 g/dL (2.4-3.5); Glucose 109 mg/dL (80-115); Potassium 3.9 mmol/L (3.5-5.1); Protein, Total 5.5 g/dL (5.8-8.1); Sodium 141 mmol/L (136-145)
[2020-12-13 00:17] VITALS: BMI 25.9
[2020-12-13 00:32] LABS: CKMB 0.7 ng/mL (0-6.6)
[2020-12-13] MEDS ORDERED: Ondansetron ODT 4 MG TAB SL PRN (01:00)
[2020-12-13] MEDS ORDERED: Ondansetron PF 4 MG/2 ML Vial IVP PRN (01:00)
[2020-12-13] MEDS ORDERED: Acetaminophen 325 MG TAB PO PRN (01:00)
[2020-12-13 01:48] LABS: SARS-CoV-2 NAA Rapid Test Not Detected (NotDetected)
[2020-12-13 02:40] LABS: Troponin I 0.056 ng/mL (< 0.028)
[2020-12-13] MEDS ORDERED: Nitroglycerin 0.4 MG TAB (25 Tab Bottle) SL PRN (04:05)
[2020-12-13] MEDS: ALPRAZolam 0.25 MG TAB PO SCH (08:09)
[2020-12-13] MEDS: Apixaban 5 MG TAB PO SCH ×2 (08:09→20:25)
[2020-12-13] MEDS: Aspirin 81 mg Enteric Coated Tablet PO SCH (08:09)
[2020-12-13] MEDS ORDERED: Rosuvastatin 20 MG TAB PO SCH (21:00)
[2020-12-13] MEDS ORDERED: Ezetimibe 10 MG TAB PO SCH (21:00)
[2020-12-14 05:38] LABS: #Eosinphils 0.1 thou/uL (0.0-0.7); #Monocytes 0.4 thou/uL (0.11-0.59); #Neutrophils 2.6 thou/uL (1.40-6.50); %Basophils 0.4 % (0.0-1.0); %Eosinophils 1.9 % (0.0-10.0); %Lymphocytes 24.9 % (21.0-51.0); %Monocytes 9.2 % (0.0-10.0); %Neutrophils 63.6 % (42.0-75.0); Hemoglobin 8.9 g/dL (12.0-16.0); Mean Corpuscular HGB CONC 33.7 g/dL (32.0-36.0); Mean Corpuscular Hemoglobin 30.5 pg (27.0-31.0); Mean Corpuscular Volume 90.5 fL (78.0-98.0); Mean Platelet Volume 6.4 fL (7.4-10.4); Platelet Count 199 thou/uL (130-400); RBC Distribution Width 12.9 % (11.5-14.5); Red Blood Cell (RBC) Count 2.92 mill/uL (4.20-5.40); White Blood Cell (WBC) Count 4.1 thou/uL (4.8-10.8)
[2020-12-14 05:59] LABS: Anion Gap 9 mmol/L (10-20); BUN (Urea Nitrogen) 8 mg/dL (9.8-20.1); Calc. Creatinine Clearance 105 mL/min (70-130); Calcium 8.2 mg/dL (7.8-10.44); Carbon Dioxide 27 mmol/L (23-31); Chloride 107 mmol/L (98-107); Glucose 99 mg/dL (80-115); Potassium 3.8 mmol/L (3.5-5.1); Sodium 139 mmol/L (136-145)
[2020-12-14] MEDS: ALPRAZolam 0.25 MG TAB PO SCH (08:37)
[2020-12-14] MEDS: Apixaban 5 MG TAB PO SCH (08:38)
[2020-12-14] MEDS: Aspirin 81 mg Enteric Coated Tablet PO SCH (08:38)
[2020-12-14 11:57] VITALS: BP 126/92; TEMP 98.3
== END 2020-12-14 15:02 | disposition home or self-care (01) ==
LOC: ERS 21:24 → 2SW 23:30
PROVIDERS: ADMIT Internal Medicine; ATTEND Internal Medicine
DX: I47.1 Supraventricular tachycardia (principal); I21.4 Non-ST elevation (NSTEMI) myocardial infarction; I11.0 Hypertensive heart disease with heart failure; I50.9 Heart failure, unspecified; I25.10 Atherosclerotic heart disease of native coronary artery without angina pectoris; E78.5 Hyperlipidemia, unspecified; I25.2 Old myocardial infarction; I48.0 Paroxysmal atrial fibrillation; D50.9 Iron deficiency anemia, unspecified; E78.00 Pure hypercholesterolemia, unspecified; I25.5 Ischemic cardiomyopathy; Z66 Do not resuscitate; Z23 Encounter for immunization; Z87.891 Personal history of nicotine dependence; Z79.01 Long term (current) use of anticoagulants; Z79.82 Long term (current) use of aspirin; Z79.899 Other long term (current) drug therapy; Z88.5 Allergy status to narcotic agent; Z95.1 Presence of aortocoronary bypass graft; Z95.5 Presence of coronary angioplasty implant and graft; Z20.822 Contact with and (suspected) exposure to COVID-19
CPT/HCPCS: 80048; 80053; 82553; 83735; 83880; 84484 ×2; 85025 ×2; 90732; 93005; 99285; G0009; G0378 ×3; U0002; U0005; 36415; 90471

== ENCOUNTER 2020-12-24 15:07 | Outpatient (CLI) | payer MEDICARE ==
[2020-12-24 17:06] LABS: Anion Gap 13 mmol/L (10-20); BUN (Urea Nitrogen) 12 mg/dL (9.8-20.1); Calc. Creatinine Clearance 0 mL/min (70-130); Calcium 8.9 mg/dL (7.8-10.44); Carbon Dioxide 26 mmol/L (23-31); Chloride 105 mmol/L (98-107); Glucose 94 mg/dL (80-115); Potassium 3.6 mmol/L (3.5-5.1); Sodium 140 mmol/L (136-145)
[2020-12-24 17:21] LABS: Hemoglobin 8.8 g/dL (12.0-15.5); Mean Corpuscular HGB CONC 29.9 g/dL (32.0-36.0); Mean Corpuscular Hemoglobin 27.2 pg (27.0-33.0); Mean Platelet Volume 8.9 fl (7.4-10.4); Platelet Count 223 10x3/uL (150-450); RBC Distribution Width 12.9 % (11.5-14.5); Red Blood Cell (RBC) Count 3.23 10x6/uL (3.90-5.03)
[2020-12-24 19:36] LABS: PTT 25.9 sec (22.0-33.0); Prothrombin Time 11.5 sec (9.5-12.1)
[2020-12-25 16:10] LABS: SARS-CoV-2 NAA Rapid Test Not Detected (NotDetected)
== END 2020-12-24 15:08 | disposition home or self-care (01) ==
LOC: LABBT 15:07
PROVIDERS: ATTEND Internal Medicine Cardiovascular Disease
DX: Z01.818 Encounter for other preprocedural examination (principal); I47.1 Supraventricular tachycardia; Z20.822 Contact with and (suspected) exposure to COVID-19
CPT/HCPCS: 80048; 85027; 85610; 85730; U0002; U0005; 93005; 93010; U0003

== ENCOUNTER → 2020-12-29 | Day surgery (SDC) | payer MEDICARE ==
[2020-12-28 08:28] VITALS: BMI 24.5
[~2020-12-29] MED LIST: Fentanyl 100 MCG/2 ML VIAL ONE; Heparin 10,000 UNITS/ 10 ML VIAL ONE; Heparin 25,000 units/D5W 0 ML ONE; Isoproterenol 0.2 MG/1 ML AMP ONE; Ketamine 50 MG/ML (10ML VIAL) ONE; Lidocaine 1% (PF) 30 ML VIAL ONE; Midazolam HCl 2 mg/2 ml Vial ONE; PROPOFOL 20 ML ONE; Phenylephrine 10 MG/ML VIAL ONE; Propofol 1,000 MG/100 ML VIAL IV ONE
== END ==
LOC: SDC 07:37
PROVIDERS: ATTEND Internal Medicine Cardiovascular Disease
PROC: 02583ZZ Destruction of Conduction Mechanism, Percutaneous Approach (ICD-10-PCS; principal; 2020-12-29)
PROC: 02K83ZZ Map Conduction Mechanism, Percutaneous Approach (ICD-10-PCS; 2020-12-29)
PROC: 4A023FZ Measurement of Cardiac Rhythm, Percutaneous Approach (ICD-10-PCS; 2020-12-29)
PROC: 4A0234Z Measurement of Cardiac Electrical Activity, Percutaneous Approach (ICD-10-PCS; 2020-12-29)
DX: I47.1 Supraventricular tachycardia (principal); I48.0 Paroxysmal atrial fibrillation; I25.10 Atherosclerotic heart disease of native coronary artery without angina pectoris; I25.5 Ischemic cardiomyopathy; I11.0 Hypertensive heart disease with heart failure; I50.20 Unspecified systolic (congestive) heart failure; I25.2 Old myocardial infarction; Z87.891 Personal history of nicotine dependence; Z79.01 Long term (current) use of anticoagulants; Z79.899 Other long term (current) drug therapy; Z79.82 Long term (current) use of aspirin; Z88.5 Allergy status to narcotic agent; Z91.011 Allergy to milk products; Z95.1 Presence of aortocoronary bypass graft; Z95.5 Presence of coronary angioplasty implant and graft
CPT/HCPCS: 76942; 92960; 93005; 93613; 93621; 93623; 93653; C1730; C1732; J1644; J2001; J2250; J2370; J2704; J3010

== ENCOUNTER 2022-03-29 08:09 | Outpatient (CLI) | payer MEDICARE ==
[2022-03-29 10:49] LABS: Hemoglobin 14.3 g/dL (12.0-15.5); Mean Corpuscular Hemoglobin 30.2 pg (27.0-33.0); Mean Corpuscular Volume 88.8 fl (81.6-98.3); Mean Platelet Volume 9.1 fl (7.4-10.4); Platelet Count 165 10x3/uL (150-450); RBC Distribution Width 14.5 % (11.5-14.5); Red Blood Cell (RBC) Count 4.73 10x6/uL (3.90-5.03); White Blood Cell (WBC) Count 3.5 10x3/uL (3.5-10.5)
[2022-03-29 11:10] LABS: PTT 27.1 sec (22.0-33.0); Prothrombin Time 10.7 sec (9.5-12.1)
[2022-03-29 11:11] LABS: ALT (SGPT) 9 U/L (8-55); AST (SGOT) 16 U/L (5-34); Albumin 4.2 g/dL (3.4-4.8); Alkaline Phosphatase 89 U/L (40-110); Anion Gap 11 mmol/L (10-20); BUN (Urea Nitrogen) 11 mg/dL (9.8-20.1); Bilirubin, Total 0.6 mg/dL (0.2-1.2); Calc. Creatinine Clearance 0 mL/min (70-130); Calcium 8.8 mg/dL (7.8-10.44); Carbon Dioxide 29 mmol/L (23-31); Chloride 104 mmol/L (98-107); Estimated GFR 94; Globulin 2.3 g/dL (2.4-3.5); Glucose 80 mg/dL (80-115); Protein, Total 6.5 g/dL (5.8-8.1); Sodium 140 mmol/L (136-145)
== END 2022-03-29 08:10 | disposition home or self-care (01) ==
LOC: LABBT 08:09
PROVIDERS: ATTEND Internal Medicine Cardiovascular Disease
DX: Z01.818 Encounter for other preprocedural examination (principal); Z20.822 Contact with and (suspected) exposure to COVID-19
CPT/HCPCS: 80053; 85027; 85610; 85730; 87811; 93005; 93010

== ENCOUNTER 2022-09-14 05:50 | Day surgery (SDC) | payer MEDICARE ==
[2022-09-12 12:46] VITALS: BMI 26.1
[2022-09-14] MEDS ORDERED: PROPOFOL 40 ML ONE (06:46)
[2022-09-14] MEDS ORDERED: GLYCOPYRROLATE/PF 0.2 MG/ML VIAL ONE (06:46)
== END 2022-09-14 08:57 | disposition home or self-care (01) ==
LOC: SDC 05:50
PROVIDERS: ATTEND Internal Medicine Cardiovascular Disease
PROC: B246ZZ4 Ultrasonography of Right and Left Heart, Transesophageal (ICD-10-PCS; principal; 2022-09-14)
DX: I48.91 Unspecified atrial fibrillation (principal); I08.1 Rheumatic disorders of both mitral and tricuspid valves; I25.10 Atherosclerotic heart disease of native coronary artery without angina pectoris; I25.2 Old myocardial infarction; E78.00 Pure hypercholesterolemia, unspecified; Z87.891 Personal history of nicotine dependence; Z79.01 Long term (current) use of anticoagulants; Z79.82 Long term (current) use of aspirin; Z79.899 Other long term (current) drug therapy; Z88.5 Allergy status to narcotic agent; Z91.011 Allergy to milk products; Z95.1 Presence of aortocoronary bypass graft; Z95.5 Presence of coronary angioplasty implant and graft; Z95.818 Presence of other cardiac implants and grafts
CPT/HCPCS: 93312; J3490; J2704

== ENCOUNTER 2023-05-11 05:49 | Day surgery (SDC) | payer MEDICARE ==
[2023-05-10 12:38] VITALS: BMI 27.6
[2023-05-11] MEDS ORDERED: Heparin 10,000 UNITS/ 10 ML VIAL ONE (06:12)
[2023-05-11] MEDS ORDERED: Verapamil 5 MG/2 ML VIAL ONE (06:12)
[2023-05-11] MEDS ORDERED: Lidocaine 1% (PF) 30 ML VIAL ONE (06:12)
[2023-05-11] MEDS ORDERED: Nitroglycerin 50 MG/250 ML BOT 0 ML ONE (06:13)
[2023-05-11 06:45] LABS: #Eosinphils 0.1 thou/uL (0.0-0.7); #Monocytes 0.4 thou/uL (0.11-0.59); #Neutrophils 2.9 thou/uL (1.40-6.50); %Basophils 0.9 % (0.0-1.0); %Eosinophils 2.4 % (0.0-10.0); %Lymphocytes 25.5 % (21.0-51.0); %Neutrophils 61.8 % (42.0-75.0); Hematocrit 38.5 % (36.0-47.0); Hemoglobin 12.8 g/dL (12.0-16.0); Mean Corpuscular HGB CONC 33.2 g/dL (32.0-36.0); Mean Corpuscular Hemoglobin 31.8 pg (27.0-31.0); Mean Corpuscular Volume 95.5 fl (78.0-98.0); Mean Platelet Volume 8.6 fL (7.4-10.4); Platelet Count 149 10x3/uL (130-400); RBC Distribution Width 12.8 % (11.5-14.5); Red Blood Cell (RBC) Count 4.03 mill/uL (4.20-5.40); White Blood Cell (WBC) Count 4.7 10x3/uL (4.8-10.8)
[2023-05-11 06:58] LABS: PTT 26.8 sec (22.9-36.1)
[2023-05-11 07:08] LABS: ALT (SGPT) 12 U/L (8-55); AST (SGOT) 14 U/L (5-34); Albumin 4.1 g/dL (3.4-4.8); Alkaline Phosphatase 84 U/L (40-110); Anion Gap 12 mmol/L (10-20); BUN (Urea Nitrogen) 15 mg/dL (9.8-20.1); Bilirubin, Direct 0.3 mg/dL (0.1-0.3); Bilirubin, Total 0.4 mg/dL (0.2-1.2); Calc. Creatinine Clearance 94 mL/min (70-130); Calcium 8.5 mg/dL (7.8-10.44); Carbon Dioxide 26 mmol/L (23-31); Cardiac Risk 2.3 (Less than 4.5); Chloride 106 mmol/L (98-107); Cholesterol 142 mg/dl (< 200 Desired); Estimated GFR 94; Glucose 92 mg/dL (80-115); HDL Cholesterol 61 mg/dL (>60 Neg Risk); LDL Cholesterol, Calculated 73 mg/dL; Potassium 3.8 mmol/L (3.5-5.1); Protein, Total 6.1 g/dL (5.8-8.1); Sodium 140 mmol/L (136-145); Triglycerides 38 mg/dL (Less than 150)
[2023-05-11] MEDS ORDERED: Midazolam HCl 2 mg/2 ml Vial ONE (08:59)
[2023-05-11] MEDS ORDERED: fentaNYL 50 mcg/mL 1 mL Vial ONE (08:59)
== END 2023-05-11 14:10 | disposition home or self-care (01) ==
LOC: CCL 05:49
PROVIDERS: ATTEND Internal Medicine Cardiovascular Disease
PROC: 4A023N8 Measurement of Cardiac Sampling and Pressure, Bilateral, Percutaneous Approach (ICD-10-PCS; principal; 2023-05-11)
PROC: B206YZZ Plain Radiography of Right and Left Heart using Other Contrast (ICD-10-PCS; 2023-05-11)
DX: I25.709 Atherosclerosis of coronary artery bypass graft(s), unspecified, with unspecified angina pectoris (principal); R94.39 Abnormal result of other cardiovascular function study; R20.8 Other disturbances of skin sensation; I10 Essential (primary) hypertension; I48.0 Paroxysmal atrial fibrillation; I21.4 Non-ST elevation (NSTEMI) myocardial infarction; I25.5 Ischemic cardiomyopathy; E66.9 Obesity, unspecified; R41.3 Other amnesia; F41.9 Anxiety disorder, unspecified; I73.9 Peripheral vascular disease, unspecified; E78.5 Hyperlipidemia, unspecified; Z98.890 Other specified postprocedural states; Z79.02 Long term (current) use of antithrombotics/antiplatelets; Z79.82 Long term (current) use of aspirin; Z95.1 Presence of aortocoronary bypass graft; Z86.718 Personal history of other venous thrombosis and embolism; Z68.27 Body mass index [BMI] 27.0-27.9, adult
CPT/HCPCS: 80048; 80061; 80076; 85025; 85610; 85730; 93005; 93459; C1769 ×2; J3010; 36415; 93010; 99152; J1644; J2001; J2250

== ENCOUNTER 2023-06-15 16:00 | Observation (INO) | payer MEDICARE ==
[2023-06-18 11:50] VITALS: BMI 28.4
[2023-06-19 06:48] LABS: #Eosinphils 0.1 thou/uL (0.0-0.7); #Monocytes 0.4 thou/uL (0.11-0.59); #Neutrophils 3.1 thou/uL (1.40-6.50); %Basophils 0.9 % (0.0-1.0); %Eosinophils 2.2 % (0.0-10.0); %Lymphocytes 20.5 % (21.0-51.0); %Monocytes 8.7 % (0.0-10.0); %Neutrophils 67.5 % (42.0-75.0); Hemoglobin 13.4 g/dL (12.0-16.0); Mean Corpuscular HGB CONC 33.5 g/dL (32.0-36.0); Mean Corpuscular Volume 95.5 fl (78.0-98.0); Mean Platelet Volume 8.7 fL (7.4-10.4); Platelet Count 166 10x3/uL (130-400); RBC Distribution Width 13.1 % (11.5-14.5); Red Blood Cell (RBC) Count 4.19 mill/uL (4.20-5.40); White Blood Cell (WBC) Count 4.6 10x3/uL (4.8-10.8)
[2023-06-19] MEDS ORDERED: PROPOFOL 20 ML ONE (07:00)
[2023-06-19] MEDS ORDERED: fentaNYL PF 100 MCG/2 ML SYRINGE ONE (07:00)
[2023-06-19] MEDS ORDERED: Labetalol HCl 100 MG/20 ML VIAL ONE (07:06)
[2023-06-19] MEDS ORDERED: PHENYLEPHRINE-NS 100 MCG/ML 10 ML SYRINGE ONE ×2 (07:06→07:40)
[2023-06-19 07:08] LABS: Anion Gap 13 mmol/L (10-20); BUN (Urea Nitrogen) 13 mg/dL (9.8-20.1); Calc. Creatinine Clearance 93 mL/min (70-130); Calcium 8.6 mg/dL (7.8-10.44); Carbon Dioxide 24 mmol/L (23-31); Chloride 109 mmol/L (98-107); Estimated GFR 90; Glucose 100 mg/dL (80-115); Potassium 4.4 mmol/L (3.5-5.1); Sodium 142 mmol/L (136-145)
[2023-06-19] MEDS ORDERED: Midazolam HCl 2 mg/2 ml Vial ONE (07:09)
[2023-06-19] MEDS ORDERED: Bupivacaine PF 0.5% 30 ML VIAL ONE (07:09)
[2023-06-19] MEDS ORDERED: fentaNYL 50 mcg/mL 1 mL Vial ONE (07:09)
[2023-06-19] MEDS ORDERED: Dexamethasone 4 mg/ml Vial ONE ×2 (07:29→08:46)
[2023-06-19] MEDS ORDERED: Sodium Chloride 0.9% 100 ML ONE (07:29)
[2023-06-19] MEDS ORDERED: EPINEPHrine 1 MG/ML VIAL ONE (07:29)
[2023-06-19] MEDS ORDERED: CEFAZOLIN 2 GM VIAL ONE (07:29)
[2023-06-19] MEDS ORDERED: Bupivacaine 0.25% HCL 30 ML VIAL ONE (07:29)
[2023-06-19] MEDS ORDERED: Dexamethasone 20 MG/5 ML VIAL ONE (07:40)
[2023-06-19] MEDS ORDERED: Ondansetron PF 4 MG/2 ML Vial ONE ×3 (07:40→10:18)
[2023-06-19] MEDS ORDERED: PROPOFOL 200 MG/20 ML VIAL ONE (07:40)
[2023-06-19] MEDS ORDERED: Lidocaine 1% PF 5 ML VIAL ONE (07:40)
[2023-06-19] MEDS ORDERED: fentaNYL 50 mcg/mL 1 mL Vial SLOW IVP PRN (07:56)
[2023-06-19] MEDS ORDERED: Ondansetron PF 4 MG/2 ML Vial IVP PRN (08:00)
[2023-06-19] MEDS ORDERED: traMADol HCl 50 MG TAB PO PRN (08:00)
[2023-06-19] MEDS ORDERED: Zolpidem Tartrate 5 MG TAB PO PRN (08:00)
[2023-06-19] MEDS ORDERED: Promethazine HCl 25 MG/ML VIAL IM PRN (08:00)
[2023-06-19] MEDS ORDERED: Ropivacaine 0.2% 550 ML 550 ML NERVE BLCK SCH (08:00)
[2023-06-19] MEDS ORDERED: Tranexamic Acid 1,000 MG/10 ML VIAL ONE ×2 (08:05→09:39)
[2023-06-19] MEDS ORDERED: Morphine 2 MG/ML VIAL SLOW IVP PRN (09:34)
[2023-06-19] MEDS ORDERED: ALPRAZolam 0.5 MG TAB PO PRN (09:40)
[2023-06-19] MEDS ORDERED: Nitroglycerin 0.4 MG TAB (25 Tab Bottle) SL PRN (09:40)
[2023-06-19] MEDS ORDERED: Non-Formulary Item 1 EACH (Evolocumab [Repatha Syringe] 140 MG/ML Syringe) SQ SCH (09:45)
[2023-06-19] MEDS ORDERED: Communication Order-Pharmacy FS SCH (09:45)
[2023-06-19] MEDS ORDERED: Tranexamic Acid 1,000 MG/10 ML VIAL IVP SCH (09:45)
[2023-06-19] MEDS: Ketorolac Tromethamine 30 MG/ML VIAL IVP SCH ×2 (13:07→17:41)
[2023-06-19] MEDS ORDERED: FLU VACC QS2023(65UP)/MF59C/PF 60 MCG/0.5 ML SYRINGE IM ONE (15:30)
[2023-06-19] MEDS: CEFAZOLIN 2 GM in Sodium Chloride 0.9% 100 ML IVPB SCH (17:31)
[2023-06-19] MEDS: Rosuvastatin 20 MG TAB PO SCH (20:54)
[2023-06-19] MEDS: traMADol HCl 50 MG TAB PO PRN (20:54)
[2023-06-19] MEDS: Aspirin 81 mg Enteric Coated Tablet PO SCH (20:54)
[2023-06-19] MEDS: Clopidogrel Bisulfate 75 MG TAB PO SCH (20:54)
[2023-06-19] MEDS: Ranolazine 500 MG ER.TAB PO SCH (20:54)
[2023-06-20] MEDS: CEFAZOLIN 2 GM in Sodium Chloride 0.9% 100 ML IVPB SCH (00:23)
[2023-06-20] MEDS: Ketorolac Tromethamine 30 MG/ML VIAL IVP SCH ×5 (00:23→23:15)
[2023-06-20] MEDS: Isosorbide Mononitrate 60 MG ER.TAB PO SCH (09:14)
[2023-06-20] MEDS: Ezetimibe 10 MG TAB PO SCH (09:14)
[2023-06-20] MEDS: Ranolazine 500 MG ER.TAB PO SCH ×2 (09:14→21:40)
[2023-06-20] MEDS: Sertraline 100 MG TAB PO SCH (09:14)
[2023-06-20] MEDS: traMADol HCl 50 MG TAB PO PRN (09:14)
[2023-06-20] MEDS: Rosuvastatin 20 MG TAB PO SCH (21:39)
[2023-06-20] MEDS: Clopidogrel Bisulfate 75 MG TAB PO SCH (21:40)
[2023-06-20] MEDS: Aspirin 81 mg Enteric Coated Tablet PO SCH (21:40)
[2023-06-21] MEDS: Ketorolac Tromethamine 30 MG/ML VIAL IVP SCH (04:51)
[2023-06-21 08:07] VITALS: BP 120/77; TEMP 98.3
[2023-06-21] MEDS: Isosorbide Mononitrate 60 MG ER.TAB PO SCH (09:01)
[2023-06-21] MEDS: Ranolazine 500 MG ER.TAB PO SCH (09:01)
[2023-06-21] MEDS: Ezetimibe 10 MG TAB PO SCH (09:01)
[2023-06-21] MEDS: Sertraline 100 MG TAB PO SCH (09:01)
== END 2023-06-21 11:38 | disposition home or self-care (01) ==
LOC: INTOOBSV 06-19 05:48 → SURG A 06-19 05:48 → SURG B 06-19 11:18
PROVIDERS: ADMIT Orthopaedic Surgery; ATTEND Orthopaedic Surgery
PROC: 0SRD0JZ Replacement of Left Knee Joint with Synthetic Substitute, Open Approach (ICD-10-PCS; principal; 2023-06-19)
DX: M17.12 Unilateral primary osteoarthritis, left knee (principal); I47.20 Ventricular tachycardia, unspecified; I21.4 Non-ST elevation (NSTEMI) myocardial infarction; I25.10 Atherosclerotic heart disease of native coronary artery without angina pectoris; I50.9 Heart failure, unspecified; F32.A Depression, unspecified; I48.91 Unspecified atrial fibrillation; Z88.5 Allergy status to narcotic agent
CPT/HCPCS: 27447; 73560; 80048; 85025; 97110 ×2; 97116 ×3; 97530 ×2; A4306; C1776; J0171; J3010; J1100; J1885; J2250; J2405; J2704; J2795; J3490; S0020